=== PATIENT | male | born 1985 | race Two or more races ===

== ENCOUNTER 2017-09-22 15:38 | Emergency (ER) | payer OTHER ==
[~2017-09-22] VITALS: Ht 172.7 cm; Wt 82.0 kg
[2017-09-22 15:38] VITALS: BP 155/90
[2017-09-22] MEDS ORDERED: PROPARACAINE OPHTH 0.5%, 15ML ONE (15:48)
[2017-09-22] MEDS ORDERED: POLYTRIM OPHTH 10ML RIGHTEYE ONE (16:00)
== END 2017-09-22 16:47 | disposition home or self-care (01) ==
LOC: ED 15:53
DX: T15.01XA Foreign body in cornea, right eye, initial encounter (principal); X58.XXXA Exposure to other specified factors, initial encounter; Y93.89 Activity, other specified; Y92.89 Other specified places as the place of occurrence of the external cause; Y99.8 Other external cause status
CPT/HCPCS: 65222; 99284